=== PATIENT | female | born 2005 | race Caucasian/White ===

== ENCOUNTER → 2025-02-08 10:13 | Outpatient (BNV) | payer MEDICAID, SELFPAY | PROVIDERS: Emergency Provider Emergency Medicine; Visit Provider Radiology Vascular & Interventional Radiology | DX: M79.632 Pain in left forearm (principal) | CPT/HCPCS: 73090 ==

== ENCOUNTER 2025-02-08 10:39 | Emergency (ER) | payer MEDICAID, SELFPAY ==
--- NOTE | ~2025-02-08 | XR_ITS ---
CLINICAL HISTORY: pain 2 view left forearm Comparison: None provided Findings: No fractures or dislocations. No joint effusion. No radiopaque foreign body. IMPRESSION: 1. Normal left forearm This document has been electronically signed by: Steven Ventura MD on 02/08/2025 12:06:46
[2025-02-08 10:50] VITALS: BP 110/64; PULSE 66; RESP 18; TEMP 36.7; O2SAT 98; BMI 17.2
[2025-02-08 11:10] LABS: MANUAL DIFF FLAG NO
[2025-02-08 11:11] LABS: Basophils Percent Auto 0.7 % (0-2); Eosinophils Absolute Auto 0.2 X10*3/uL (0.0-0.4); Hematocrit 40.4 % (37.0-47.0); Hemoglobin 14.4 g/dl (12.0-16.0); Imm Gran Abs Auto 0.01 X10*3/uL (0.00-0.03); Imm Gran Pct Auto 0.2 % (0.0-0.4); Lymphocytes Absolute Auto 2.2 X10*3/uL (1.2-4.9); Lymphocytes Percent Auto 41.9 % (20-40); Mean Corpuscular HGB Conc 35.6 g/dl (31.0-35.0); Mean Corpuscular Hemoglobin 32.1 pg (27.0-33.0); Mean Corpuscular Volume 90.2 fL (80.0-98.0); Mean Platelet Volume 10.6 fL (9.4-12.3); Monocytes Absolute Auto 0.3 X10*3/uL (0.1-1.2); Monocytes Percent Auto 4.9 % (2-11); Neutrophils Absolute Auto 2.6 x10*3/uL (2.0-8.3); Neutrophils Percent Auto 49.3 % (45-73); Platelet Count 236 X10*3/uL (160-400); Red Blood Count 4.48 X10*6/uL (4.20-5.50); Red Cell Distribution Width 12.2 % (11.0-16.0); White Blood Count 5.4 X10*3/uL (4.8-10.8)
--- NOTE | 2025-02-08 11:27 | PC.NURSE ---
Brought to ED 23 from waiting room. Changed into hospital attire. Labs drawn in triage, awaiting results. Awaiting ED provider sign-up/evaluation.
--- NOTE | 2025-02-08 11:27 | ED.GENADULT ---
HPI - General Adult General Chief complaint: General Medical Stated complaint: Arm pain Time Seen by Provider: 02/08/25 11:27 Source: patient, RN notes reviewed and old records reviewed Mode of arrival: ambulatory Limitations: no limitations History of Present Illness ED Provider: Michel [facility] narrative: Patient is a 19-year-old right-hand dominant female presenting to emergency department with complaint of left forearm pain for the past few weeks. She denies fall or other trauma. Reports that she does frequently lift heavy items at work and her pain is worse with movement and lifting. Has tried [id number] Tylenol and ibuprofen with some relief of symptoms. Denies any numbness or tingling. Also complaining of nausea, vomiting and diarrhea for the past 2 days. States symptoms began after she returned from a beach trip. A friend had similar symptoms. Emesis is non-bloody, non-bilious. Reports feeling chills at home. Has been able to tolerate some fluids. Epigastric discomfort. MD complaint: arm pain, n/v/d Related Data Previous Rx's ?Medication ?Instructions ?Recorded naproxen 500 mg tablet 500 mg PO BID #14 tabs 02/08/25 ondansetron 4 mg disintegrating 4 mg PO Q8H PRN nausea and 02/08/25 tablet vomiting #10 tabs Allergies Allergy/AdvReac Type Severity Reaction Status Date / Time No Known Allergies Allergy Verified 02/08/25 10:53 Review of Systems Review of Systems: As per HPI Yes all other systems are reviewed and are negative Constitutional: Constitutional: Reports as per HPI [facility] Social History Social History Advance Directives: No Advance Directives Information Provided: Yes Do you have a plan to hurt others: No Plan Physical Exam ED Vital Signs: Vital Signs - 24 hr 02/08/25 10:50 02/08/25 12:13 Temperature 98.1 F 98.4 F Pulse Rate 66 49 L Respiratory Rate 18 16 Blood Pressure 110/64 126/65 Pulse Oximetry 98 100 Oxygen Delivery Method Room Air Room Air BMI result Body Mass Index 17.2 Vital signs have been reviewed and appear to be correct. Blood pressure normal. Heart rate normal. Respiratory rate normal. Temperature normal. Oxygen saturation normal. Const General: cooperative, healthy appearing and no acute distress Orientation/consciousness: oriented to person, oriented to place, oriented to time and patient oriented x3 Limitations: no limitations HENMT Head: Yes normocephalic and Yes atraumatic Ears: external ears normal General nose exam: Normal external nose present Face and sinus: Yes face symmetric Mouth: oropharynx normal and moist mucous membranes Throat: Yes uvula midline Eyes Pupils: Equal, round and reactive pupils present Neck Neck: Yes normal visual inspection and Yes supple Resp Effort & Inspection: normal respiratory effort and able to speak in complete sentences Auscultation: clear to auscultation bilaterally Cardio Rate: regular rate Rhythm: regular rhythm Heart sounds: S1 normal heart sound present and S2 normal heart sound present GI Palpation (GI): Soft to palpation and nontender Auscultation: normoactive bowel sounds General: Yes no CVA tenderness Back/Spine/Pelvis Back: no CVA tenderness Skin General skin exam: elasticity normal and turgor normal Neuro General: oriented to person, oriented to place, oriented to time, patient oriented x3, moves all extremities, no focal motor deficits and CN's II-XI intact bilaterally Cranial nerves: Yes Equal, round and reactive pupils present Cognition (Neuro): normal cognition Extrem General: Yes full ROM, Yes no pedal edema and Yes no calf tenderness Left upper extremity: elbow/forearm Details: normal to inspection, tenderness Location: of the proximal forearm (worse with movement and ROM of elbow) and normal ROM; no swelling, no unusual warmth and no ecchymosis and hand Details: normal to inspection, normal capillary refill, neuromotor exam normal, neurosensory exam normal, vascular exam Details: radial pulse present and normal capillary refill and normal ROM of fingers Psych Mental Status: mental status grossly normal Affect: normal affect Thought process: Normal thought process present Medications Administered Discontinued Medications Generic Name Dose Route Start Last Admin Trade Name Freq PRN Reason Stop Dose Admin Sodium Chloride 1,000 mls @ 999 mls/hr 02/08/25 12:15 02/08/25 13:07 Ns IV 02/08/25 13:15 Infused .Q1H1M JOY Infusion Ondansetron HCl 4 mg 02/08/25 12:01 02/08/25 12:06 Ondansetron Hcl 4 Mg/2 Ml Vial IVPUSH 02/08/25 12:02 4 mg ONCE ONE Administration Medical Decision Making Medical Decision Making MDM Narrative: Patient is a 19-year-old right-hand dominant female presenting to emergency department with complaint of left forearm pain for the past few weeks. On exam patient is awake, A+Ox3, VS WNL, afebrile, normal neurological exam without focal deficits, physical exam findings as above. Given reported symptoms and physical exam findings, initial differential includes but is not limited to posterior intraosseous neuropathy, radial tunnel syndrome, gastroenteritis, electrolyte abnormality, dehydration. Labs unremarkable. X-ray left forearm ordered by helmet coverer notable for normal left forearm. My interpretation is in agreement with the radiologist's interpretation. 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 Will discharge patient home on naproxen, advised icing the area to decrease inflammation, advised patient she can purchase an [id number] sleeve for support. Will send prescription for Zofran for nausea, advised patient to drink fluids with electrolytes such as Pedialyte, Gatorade etc.. Follow up with PCP as needed. Return precautions discussed at bedside. Patient verbalized understanding of and agreement with plan. Differential Diagnosis Differential Diagnoses: The differential diagnosis associated with the presentation includes as per [facility] Admission/Observation Consideration of admission/observation: Escalation of care including admission/observation considered Patient would have been admitted to the hospital had their work up had any findings where hospital admission was appropriate and their clinical presentation warranted hospital admission. Lab Data [facility] Lab Attestation statement: I reviewed the patient's lab results. as per [facility] 02/08/25 11:05 02/08/25 11:05 Labs: Lab Results 02/08/25 Range/Units 11:05 WBC 5.4 (4.8-10.8) X10*3/uL RBC 4.48 (4.20-5.50) X10*6/uL Hgb 14.4 (12.0-16.0) g/dl Hct 40.4 (37.0-47.0) % MCV 90.2 (80.0-98.0) fL MCH 32.1 (27.0-33.0) pg MCHC 35.6 H (31.0-35.0) g/dl RDW 12.2 (11.0-16.0) % Plt Count 236 (160-400) X10*3/uL MPV 10.6 (9.4-12.3) fL Immature Gran % (Auto) 0.2 (0.0-0.4) % Neut % (Auto) 49.3 (45-73) % Lymph % (Auto) 41.9 H (20-40) % [place] % (Auto) 4.9 (2-11) % Eos % (Auto) 3.0 (0-4) % Baso % (Auto) 0.7 (0-2) % Lymph # (Auto) 2.2 (1.2-4.9) X10*3/uL [place] # (Auto) 0.3 (0.1-1.2) X10*3/uL Eos # (Auto) 0.2 (0.0-0.4) X10*3/uL Baso # (Auto) 0.0 (0.0-0.2) X10*3/uL Abs Immat Gran (auto) 0.01 (0.00-0.03) X10*3/uL Absolute Neuts (auto) 2.6 (2.0-8.3) x10*3/uL Absolute Nucleated RBC 0.000 (0.0-0.012) X10*3/uL Nucleated RBC % (auto) 0.0 (0.0-0.2) /100WBC Sodium 140 (135-145) mmol/L Potassium 4.0 (3.3-5.1) mmol/L Chloride 111 H (96-108) mmol/L Carbon Dioxide 23 (22-29) mmol/L Anion Gap 10 L (12-20) BUN 12 (9-16) mg/dL Creatinine 0.72 (0.5-1.4) mg/dL Estim Creat Clear Calc 87.2 Estimated GFR > 60 Random Glucose 87 (60-115) mg/dL Calcium 9.7 (8.4-10.2) mg/dL Magnesium 2.2 (1.6-2.6) mg/dL Total Bilirubin 0.7 (0.0-1.0) mg/dL AST 16 (5-31) U/L ALT 13 (0-31) U/L Alkaline Phosphatase 86 (39-117) U/L Total Protein 7.1 (6.5-8.0) g/dL Albumin 4.9 (3.5-5.0) g/dL Lipase 26 (8-78) U/L Beta HCG, Quant < 2 mIU/mL Independent Interpretation I performed an independent interpretation of an: Plain X-Ray Interpretation: Left forearm x-ray is without evidence of fracture Radiology Impression Discussion of test interpretation with radiology: I have reviewed the radiologist's reading. Radiologist Impression: CLINICAL HISTORY: pain 2 view left forearm Comparison: None provided Findings: No fractures or dislocations. No joint effusion. No radiopaque foreign body. IMPRESSION: 1. Normal left forearm External Record Review External record reviewed: Inpatient record, Office record and Outpatient record Prescription Management I considered prescription management with: Pain Medication and Other Discharge Plan Discharge Clinical Impression: Neuropathic pain of left forearm, Gastroenteritis Patient Disposition: Home, Self-Care Instructions: Gastroenteritis (DC) Additional Instructions: You were evaluated in the emergency department today for left forearm pain as well as nausea, vomiting and diarrhea. Your labs were reassuring and your x-ray did not show any evidence of fractures. Your symptoms improved in the emergency department with IV fluids and medication. You are being prescribed ondansetron which you can take every 8 hours as needed for nausea. Your forearm pain is likely due to inflammation of your radial nerve. You are being prescribed naproxen to decrease inflammation, take this as prescribed. You can also purchase an [id number] supportive sleeve at a pharmacy or also at [employer] to provide support. We also recommend that you apply ice to the affected area of your arm for 10-15 minutes at a time several times daily, using caution not to apply ice directly to your skin. Follow up with your primary care provider as needed. Return to the emergency department if you develop fever, blood in your vomit or stool, dizziness or lightheadedness, or any other new or concerning symptoms. Prescriptions: New ondansetron 4 mg tablet,disintegrating 4 mg PO Q8H PRN (Reason: nausea and vomiting) Qty: 10 0RF naproxen 500 mg tablet 500 mg PO BID Qty: 14 0RF Stand Alone Forms: Work/School Release Print Language: Macanese
[2025-02-08 11:35] LABS: Alanine Aminotransferase 13 U/L (0-31); Albumin Level 4.9 g/dL (3.5-5.0); Alkaline Phosphatase 86 U/L (39-117); Anion Gap 10 (12-20); Aspartate Amino Transferase 16 U/L (5-31); Bilirubin Total 0.7 mg/dL (0.0-1.0); Blood Urea Nitrogen 12 mg/dL (9-16); Calcium 9.7 mg/dL (8.4-10.2); Carbon Dioxide 23 mmol/L (22-29); Chloride 111 mmol/L (96-108); Creatinine Clr Calc Pharmacy 87.2; Estimated Glomerular Filt Rate > 60; Glucose Random 87 mg/dL (60-115); Lipase 26 U/L (8-78); Magnesium 2.2 mg/dL (1.6-2.6); Sodium 140 mmol/L (135-145); Total Protein 7.1 g/dL (6.5-8.0)
[2025-02-08 11:36] LABS: HCG Quantitative < 2 mIU/mL
--- OUTSIDE RECORDS SUMMARY | 2025-02-08 11:45 | XMS_ITS | Referral Summary ---
Author Organization [facility] Address [address] [place] [address] Care Team Providers Care Gas Stove Servicer Helper Name Role Phone Sania Graham NP Primary Care Provider [phone] Encounters Date Type Department Care Team Description 12/18/2024 Telephone [facility] Pediatric and Adolescent [address] [place] [id number] Parts Washer: Allyssa Donaldson Telephone Intake, Staff PAC Patient Request Call Back (Returning call) 12/10/2024 2:00 PM EDT Follow-Up [facility] Pediatric [facility] Adolescent [address] [place] [id number] Parts Washer: Carolyn Marquez MD Eating disorder, unspecified type (Primary Dx); Routine screening for STI (sexually transmitted infection); Initiation of Depo Provera; Mild depression from Last 3 Months Allergies No known active allergies Medications hydrOXYzine HCL (ATARAX) 25 mg tablet Take 1 tablet (25 mg total) by mouth 3 times a day as needed for anxiety (Take before meals). 90 tablet 5 4 Active triamcinolone acetonide (KENALOG) 0.1% cream APPLY TOPICALLY TO THE AFFECTED AREA 2 TIMES A DAY. 60 g 1 4 Active Additional Information Patient not taking.Reported on 07/11/2024 mirtazapine (REMERON) 15 mg tablet Take 1 tablet (15 mg total) by mouth nightly. 90 tablet 1 5 Active multivitamin tablet Take 1 tablet by mouth once a day. 90 tablet 1 5 Active food supplemt, lactose-reduced (Ensure) liquid Take 1 Bottle by mouth 3 times a day. Rx: Drink 1 ensure 3 times per day Diagnosis: Malnutrition Dispense: QS x 1 month 237 mL 5 5 Active Active Problems Problem Noted Date Diagnosed Date Severe protein-calorie malnutrition 02/12/2024 Secondary amenorrhea 09/22/2022 Assessment & Plan (09/22/2022 11:30 AM EST): Rapid influenza testing negative. Urine testing positive. Approximately 6 weeks based on LMP. Referral to OB placed. Advised patient to take and only take tylenol OTC unless directed otherwise by a medical provider. No alcohol use, drug use, or smoking. Present to ER if having abdominal pain, vaginal bleeding, or other concerning symptoms prior to seeing OB. Stomach ache 09/22/2022 Assessment & Plan (09/22/2022 11:24 AM EST): Suspect related to . No red flags. Exam benign. Follow up with OBGYN as planned. Less than 8 weeks gestation of 023 Acute nonintractable headache 09/25/2019 Assessment & Plan (09/22/2022 2:50 PM EST): Suspect related to . No red flags. Exam normal. Tylenol only. Patient given news in Burmese without the use of the staff interpreter first. She immediately began crying and when I asked patient for permission to divulge this information to her mother, she consented and I did so. Patient and mother both crying in the room and upset with this information, suspect elevated blood pressure is due to this. We discussed if any questions arise following the visit to please contact myself or her PCP's office. Mild depression 09/25/2019 Visual symptoms 06/29/2015 Resolved Problems Problem Noted Date Diagnosed Date Resolved Date Weight loss 12/17/2023 12/24/2023 Immunizations Immunization Administration Dates Next Due Covid-19, Moderna, mRNA, Vac cine, PF, 50 mcg/0.5 mL (for age 12 y and up) 08/27/2024 Covid-19, Pfizer, mRNA, Crook valent, PF 30 mcg/0.3 mL dose (for ages 12 and older) 09/02/2021,03/16/2021,02/23/2021 Diphtheria, Tetanus Toxoids and Acellular Pertussis Vaccine 10/18/2009,02/04/2007,04/10/2006,01/18,2005 Haemophilus Influenzae Type B Vaccine, Conjugate Unspecified Formulation 02/04/2007,02/05/2006,2005 Hepatitis A Vaccine, Pediatric/Adolescent Dosage, 2 Dose Schedule 07/03/2007,09/26/2006 Hepatitis B Vaccine, Pediatr ic or Pediatric/Adolescent Dosage 04/10/2006,2005,2005 Human Papillomavirus 9-Valent Vaccine 12/17/2018 ,05/02/2018 INFLUENZA, SPLIT VIRUS, TRIVALENT, PF 08/27/2024 Influenza, Injectable, Quadr ivalent, Preservative Free 06/28/2021 Influenza, Unspecified 05/14/2019,2017,06/29/2015,08/20,08/30/2007,07/03/2007 Measles, Mumps, and Rubella Vaccine 10/18/2009,0 09/26/2006 Meningococcal ACWY Vaccine, Unspecified Formulation 05/02/2018 Meningococcal Oligosaccharid e (Groups A, C, Y and W-135) Diphtheria Toxoid Conjugate Vaccine (MCV4O) 12/28/2023 Pneumococcal Conjugate Vacci ne, 7 Valent 02/04/2007,02/05/2006,2005 Poliovirus Vaccine, Unspecif ied Formulation 10/18/2009,04/10/2006,02/05/2006,11/18 Tetanus Toxoid, Reduced Diph theria Toxoid, and Acellular Pertussis Vaccine, Adsorbed 05/02/2018 Varicella Virus Vaccine 10/18/2009,09/26/2006 Social History Tobacco Use Types Packs/Day Years Used Date Smoking Tobacco: Never Smokeless Tobacco: Never Tobacco Cessation:Counseling Given: Not Answered Alcohol Use Standard Drinks/Week Comments Not Currently 0 (1 standard drink = 0.6 oz pur e alcohol) 3 months ago Comments Unknown Sex and Gender Information Value Date Recorded Sex Assigned at Female 12/04/2023 11:29 AM EDT Legal Sex Female 3:19 AM EDT Gender Identity Not on file Sexual Orientation Not on file Last Filed Vital Signs Vital Sign Reading Time Taken Comments Blood Pressure 132/70 12/10/2024 2:13 PM EDT Pulse 65 12/10/2024 2:13 PM EDT Temperature 36.8 C (98.2 F) 07/11/2024 11:30 AM EST Respiratory Rate 20 01/04/2024 10:04 AM EDT Oxygen Saturation 100% 07/11/2024 11:30 AM EST Inhaled Oxygen Concentration - - Weight 44.1 kg (97 lb 3.6 oz) 12/10/2024 2:13 PM EDT Height 162.5 cm (5' 3.98 ) 12/10/2024 2:13 PM ED T Body Mass Index 16.7 12/10/2024 2:13 PM EDT Plan of Treatment Upcoming Encounters Date Type Department Care Team (Late st Contact Info) Description 03/13/2025 4:00 PM EDT Follow-Up [facility] Pediatric [facility] Adoles[facility] [address] [place] [phone] Parts Washer: Carolyn Marquez MD [address] [place] [phone] Procedures * Due to [place] state law, this organization might not be sharing negative HIV tests. Procedure Name Priority Date/Time Associated Diagnosis Comments POCT HCG, URINE Routine 12/10/2024 3:07 PM EDT Routine screening for STI (sexually transmitted infection) CHLAMYDIA/NEISSERIA GONORRHEA RNA Routine 12/10/2024 3:01 PM EDT Routine screening for STI (sexually transmitted infection) POCT AUTOMATED URINALYSIS DIPSTICK Routine 12/10/2024 2:20 PM EDT HEPATITIS C ANTIBODY W/REFLEX TO HCV RNA, QUANTITATIVE PCR Routine 01/04/2024 2:05 PM EDT Eating disorder, unspecified type Abnormal weight loss from Last 3 Months or Most Recently Relevant to Health Maintenance Results * Due to [place] state law, this organization might not be sharing negative HIV tests. * POCT HCG, Urine, non-interfaced (12/10/2024 3:07 PM EDT) Control band present? Yes Background Clear? Yes Preg Test, Ur Negative Negative Urine 12/10/2024 3:07 PM EDT Carolyn Mnedoza MD POINT OF CARE TEST ORDERABLES Final Result * Chlamydia/Neisseria gonorrhoeae RNA (12/10/2024 3:01 PM EDT) Chlamydia trachomatis RNA, TMA NOT DETECTED NOT DETECTED 12/11/2024 1:16 PM EDT [facility] Neisseria Gonorrhoeae RNA, TMA NOT DETECTED NOT DETECTED 12/11/2024 1:16 PM EDT [facility] Comment: The analytical performance characteristics of this assay, when used to test SurePath(TM) specimens have been determined by [employer]. The modifications have not been cleared or approved by the FDA. This assay has been validated pursuant to the CLIA regulations and is used for clinical purposes. For additional information, please refer to https://education.[employer]/faq/XXD776 (This link is being provided for information/ educational purposes only.) Urine Voided urine specimen / Unknown Non-Blood Collection / Unknown 12/10/2024 3:01 PM EDT 12/10/2024 3:11 PM EDT Narrative [facility] - 12/11/2024 1:16 PM EDT [facility] Received Date:[id number] Carolyn Mendoza MD LAB URINE ORDERABLES Final Res ult [facility] [address] [place] [address] [address] Floor, [place] [address], [place] [phone] [facility] [address], [place] [address], [place] [phone] * (ABNORMAL) POCT Automated Urinalysis Dipstick, interfaced (12/10/2024 2:20 PM EDT) Color, POCT Dark Yellow Yellow, Light Yellow, Dark Yellow 12/10/2024 2:21 PM EDT [facility], [facility] Clarity, POCT Cloudy(A) Clear 12/10/2024 2:21 PM EDT [facility] Glucose, POCT Negative Negative mg/dL 12/10/2024 2:21 PM EDT [facility] Bilirubin, POCT Negative Negative 12/10/2024 2:21 PM EDT [facility] Ketones, POCT Negative Negative mg/dL 12/10/2024 2:21 PM EDT [facility] Specific [place], POCT 1.020 1.005 - 1.030 12/10/2024 2:21 PM EDT [facility] Blood, POCT Trace-intac t(A) Negative 12/10/2024 2:21 PM EDT [facility] pH, POCT 7.5 5.0 - 8.0 12/10/2024 2:21 PM EDT [facility] Protein, POCT 30(A) Negative mg/dL 12/10/2024 2:21 PM EDT [facility] Urobilinogen, POCT 0.2 0.2, 1.0 EU/dL 12/10/2024 2:21 PM EDT [facility] Nitrite, POCT Negative Negative 12/10/2024 2:21 PM EDT [facility] Leukocyte Esterase, POCT Negative Negative 12/10/2024 2:21 PM EDT [facility] Urine 12/10/2024 2:20 PM EDT 12/10/2024 2:21 PM EDT us Carolyn Mendoza MD LAB POCT ORDERABLES - DEVICE F inal Result [facility] [address] [place] [address], [place] * Hepatitis C Antibody w/Reflex to HCV RNA, Quantitative PCR (01/04/2024 2:05 PM EDT) Hepatitis C Antibody NON-REACT NADINE NON-REACT NADINE 01/05/2024 7:45 AM EDT [email or web address] Comment: HCV antibody was non-reactive. There is no laboratory evidence of HCV infection. In most cases, no further action is required. However, if recent HCV exposure is suspected, a test for HCV RNA (test code 20487) is suggested. For additional information please refer to http://education.[employer]/faq/NFW90l9 (This link is being provided for informational/ educational purposes only.) Blood Structure of peripheral vein / Unknown Venipuncture / Unknown 01/04/2024 2:05 PM EDT 01/04/2024 2:13 PM EDT Narrative [facility] - 01/05/2024 7:45 AM EDT [facility] Received Date:[id number] us Carolyn Mendoza MD LAB BLOOD ORDERABLES Final Res ult Performing Organization Address City/[facility]/ZIP Co de Phone Number [facility] [address], [place] [address], [place] [phone] [facility] [address] [place] [address], [place] [address], [place] [phone] from Last 3 Months or Most Recently Relevant to [place] [id number] [facility] [place] [address] [place] [phone] [place] [id number] Advance Directives Documents on File Type Date Recorded Patient Regulatory Submissions Specialist Expl anation Health Care Proxy 12/19/2023 12:44 PM 12-17 * Full Code (Latest Code Status on File) Date Activated Date Inactivated Comments 12/17/2023 9:21 PM 12/24/2023 5:52 PM Healthcare Agents on File Name Relationship Healthcare Agent Relationship Communication Pj Miranda(PHI 12/27/2024) Mother Health Care Agent Care Teams Gas Stove Servicer Helper Relationship Specialty Start Date End Date Sania Graham NP PCP - General Family Medicine 12/18/23
[2025-02-08] MEDS: ondansetron HCL 4 MG/2 ML VIAL IVPUSH (12:06)
[2025-02-08] MEDS: 0.9 % Sodium Chloride 1,000 ML 999 ML IV (12:06)
[2025-02-08 12:13] VITALS: BP 126/65; PULSE 49; RESP 16; TEMP 36.9; O2SAT 100
[2025-02-08 14:00] VITALS: BP 128/62; PULSE 53; RESP 16; TEMP 36.9; O2SAT 100
[2025-02-08 14:21] VITALS: BP 128/62; PULSE 53; RESP 16; TEMP 36.9; O2SAT 100
== END 2025-02-08 14:21 | disposition home or self-care (01) ==
PROVIDERS: Emergency Provider Emergency Medicine
DX: G56.92 Unspecified mononeuropathy of left upper limb (principal); K52.9 Noninfective gastroenteritis and colitis, unspecified; M79.632 Pain in left forearm; R11.2 Nausea with vomiting, unspecified; R10.13 Epigastric pain; Z79.899 Other long term (current) drug therapy
CPT/HCPCS: 36415; 73090; 80053; 83690; 83735; 84702; 85025; 96361; 96374; 99284; J2405